=== PATIENT | male | born 1980 | race Two or more races ===

== ENCOUNTER 2018-05-08 04:15 | Emergency (ER) | payer MEDICAID ==
[~2018-05-08] VITALS: Ht 177.8 cm; Wt 92.9 kg
[2018-05-08 04:19] VITALS: BP 137/93
[2018-05-08] MEDS ORDERED: AZITHROMYCIN 500 MG TABLET ONE (04:44)
[2018-05-08] MEDS ORDERED: CEFTRIAXONE 250 MG ONE (04:44)
[2018-05-08] MEDS ORDERED: CEFTRIAXONE 250 MG IM ONE (05:00)
[2018-05-08] MEDS ORDERED: AZITHROMYCIN 500 MG TABLET PO ONE (05:00)
[2018-05-08 05:20] LABS: CULTURE INDICATED? YES; MICROSCOPIC INDICATED
== END 2018-05-08 06:19 | disposition home or self-care (01) ==
LOC: ED 06:13
DX: N34.1 Nonspecific urethritis (principal)
CPT/HCPCS: 81001; 87086; 87491; 87591; 96372; 99284; J0696

== ENCOUNTER 2021-04-07 19:00 | Emergency (ER) | payer MEDICAID ==
[~2021-04-07] VITALS: Ht 180.3 cm; Wt 100.9 kg
[2021-04-07 19:06] VITALS: BP 114/86
--- NOTE | 2021-04-07 20:00 | NUR ---
PT NOT IN LOBBY WHEN CALLED FOR IMAGING X1
--- NOTE | 2021-04-07 20:30 | NUR ---
PT NOT IN LOBBY WHEN CALLED FOR IMAGING X2
--- NOTE | 2021-04-07 21:10 | NUR ---
PT NOT IN LOBBY WHEN CALLED FOR IMAGING X3
== END 2021-04-07 22:26 | disposition left against medical advice (07) ==
LOC: ED 19:30
DX: M79.641 Pain in right hand (principal)
CPT/HCPCS: 99281